=== PATIENT | female | born 1950 | race Caucasian/White ===

== ENCOUNTER 2019-10-19 19:01 | Emergency (ER) | payer MEDICARE, SELFPAY ==
--- NOTE | ~2019-10-19 | XR_ITS ---
EXAMINATION: XR knee RT min 4V DATE: 10/19/2019 19:41 INDICATION: Right knee contusion and pain. TECHNIQUE: 5 views of right knee were obtained. COMPARISON: None. FINDINGS: There is a total right knee arthroplasty without patellar resurfacing. Tibia demonstrate 8 degrees posterior angulation with respect to the tibial component. No periprosthetic lucency to sugge st loosening or infection. There is an old healed fracture of proximal fibular diaphysis. There is mi ld osteoarthritis of patellofemoral compartment. There is a large knee joint effusion. IMPRESSION: 1. Large knee joint effusion. 2. Total right knee arthroplasty in near-anatomic alignment. 3. Mild osteoarthritis of patellofemoral compartment. Reviewed, dictated and finalized at location A.
[2019-10-19 19:01] VITALS: BP 143/80; PULSE 82; RESP 20; TEMP 36.8; O2SAT 96
--- NOTE | 2019-10-19 19:12 | ED.FALL ---
HPI - Fall General Chief Complaint: Fall Stated Complaint: fall Source: patient Mode of arrival: EMS Limitations: no limitations History of Present Illness HPI Narrative: 69 y.o. recalls slipping at [employer] at around 6:50 PM, falling forward onto her right knee. She had immediate pain #9-10/10, increased with knee flexion. She had no preceding lightheadedness, palpitations or chest pain. She takes warfarin. INR earlier this week of 2. Hx of right knee replacement 2 years ago. Denies contusion elsewhere. Takes tramadol for knee pain. Able to take codeine and hydrocodone without adverse reactions. States has left neck soreness. Denies hip, wrist, elbow, shoulder pain. No head contusion. Has diarrhea today. Occurs intermittently. Related Data Home Medications Medication Instructions Recorded Confirmed albuterol sulfate [ProAir HFA] 2 puff INHALATION QID PRN 10/19/19 10/19/19 allopurinol 300 mg PO DAILY 10/19/19 10/19/19 aspirin 81 mg PO DAILY 10/19/19 10/19/19 budesonide-formoterol [Symbicort] 2 puff INHALATION BID 10/19/19 10/19/19 fvgaltqpzf-paqqpjsigy-bby-cod 1 cap PO Q4H PRN 10/19/19 10/19/19 [Fioricet with Codeine] levothyroxine 100 mcg PO DAILY 10/19/19 10/19/19 magnesium sulfate 100 mg PO DAILY 10/19/19 10/19/19 metformin 500 mg PO BID 10/19/19 10/19/19 metoprolol tartrate 25 mg PO DAILY 10/19/19 10/19/19 pantoprazole 40 mg PO DAILY 10/19/19 10/19/19 promethazine 25 mg PO PRN 10/19/19 10/19/19 simvastatin 40 mg PO DAILY 10/19/19 10/19/19 tramadol 50 mg PO PRN 10/19/19 10/19/19 warfarin 4 mg PO DAILY 10/19/19 10/19/19 Allergies Allergy/AdvReac Type Severity Reaction Status Date / Time morphine Allergy Unknown Verified 10/19/19 19:25 Penicillins Allergy Unknown Verified 10/19/19 19:25 Review of Systems Constitutional: Constitutional: Reports fever(s) Cardiovascular: Cardiovascular: Reports no additional cardiovascular complaints Respiratory: Respiratory: Reports cough Gastrointestinal: Gastrointestinal: Denies nausea and Denies vomiting Neurologic: Denies numbness and Denies weakness Endocrine: Comments: Does not check blood sugars at home, no meter, not recommended by Dr. Miranda per patient. Hematologic/Lymphatic: Comments: States INR of 2.0 four days ago. [facility] Past Medical History Medical History (Updated 10/20/19 @ 22:44 by Armando Shaw MD) Asthma Diabetes mellitus Hypertension Hypothyroidism Surgical History Surgical History (Updated 10/19/19 @ 19:24 by Armando Shaw MD) Aortic valve replaced Exam Const: General: cooperative, alert and awake Nutritional Appearance: obese Orientation/consciousness: patient oriented x3 Neck: Neck: normal visual inspection, full ROM, no lymphadenopathy and other (tender left supero-medial trap. No C spine or paravert. tenderness.) Skin: General skin exam: normal color Trauma: other (very superficial abrasions of the right patella) Extrem: Right lower extremity: knee (examination is limited by pain. ) Other: Right knee is larger than left, ? swelling, arthritic, other. No ecchymosis. Tender patella, and just lateral to the patella tendon along the joint line. Knee is flexed 20 degrees at rest. She has about 20 degrees of knee flexion before there is severe pain and has pain with attempted full extension. Valgus knee stressing causes medial joint line tenderness. There is no opening. Varus stress testing is negative for pain/laxity. Course Course Emergency Course: X ray result discussed ith patient. Vital Signs Vital signs: Vital Signs Temperature 36.8 C 10/19/19 19:01 Pulse Rate 82 10/19/19 19:01 Respiratory Rate 20 10/19/19 19:01 Blood Pressure 143/80 H 10/19/19 19:01 Pulse Oximetry 96 10/19/19 19:01 Temperature 36.8 C 10/19/19 19:01 Pulse Rate 82 10/19/19 19:01 Respiratory Rate 16 10/19/19 20:41 Blood Pressure 143/80 H 10/19/19 19:01 Pulse Oximetry 100 10/19/19 20:41 MDM - Fall MDM Na
[2019-10-19 19:15] LABS: Glucose Point of Care 412 (65-105)
[2019-10-19 20:15] LABS: Hematocrit 38.1 % (35.0-42.0); Hemoglobin 11.9 g/dL (11.7-13.8); Mean Corpuscular HGB Conc 31.2 g/dL (32.0-36.0); Mean Corpuscular Hemoglobin 26.5 pg (27.0-31.0); Mean Corpuscular Volume 84.9 fL (78.0-102.0); Mean Platelet Volume 10.9 fl (9.2-11.8); Platelet Count Result 151 K/mm3 (150-420); Red Blood Count 4.49 M/mm3 (4.20-5.40); Red Cell Distribution Width 14.9 % (11.6-14.4); White Blood Count 5.2 K/mm3 (4.8-10.8)
[2019-10-19 20:27] LABS: Anion Gap 11.1 mmol/L (7-16); Blood Urea Nitrogen 13 mg/dL (7-18); Calcium 8.7 mg/dL (8.5-10.1); Carbon Dioxide 27 mmol/L (21-32); Chloride 97 mmol/L (98-108); Estimated CRCL calculation 52 ml/min; Estimated Glomerular Filt Rate 41; INR 2.2; Osmolality Calculated 290 mOsm/kg (285-295); Potassium 4.1 mmol/L (3.5-5.1); Prothrombin Time 21.9 Seconds (9.64-11.0); Sodium 131 mmol/L (136-145)
[2019-10-19 20:28] LABS: Glucose 419 mg/dL (70-99)
--- NOTE | 2019-10-19 20:33 | PC.NURSE ---
JF WRAP PLACED TO RIGHT KNEE
[2019-10-19 20:41] VITALS: RESP 16; O2SAT 100
== END 2019-10-19 20:46 | disposition home or self-care (01) ==
PROVIDERS: Emergency Provider Family Medicine; PCP Family Medicine
DX: S80.01XA Contusion of right knee, initial encounter (principal); M25.461 Effusion, right knee; E87.1 Hypo-osmolality and hyponatremia; E11.9 Type 2 diabetes mellitus without complications; I10 Essential (primary) hypertension; E03.9 Hypothyroidism, unspecified; W01.0XXA Fall on same level from slipping, tripping and stumbling without subsequent striking against object, initial encounter
CPT/HCPCS: 36415; 73564; 80048; 85027; 85610; 99283; A9270